=== PATIENT | male | born 1995 | race Caucasian/White ===

== ENCOUNTER 2017-03-03 01:15 | Emergency (ER) | payer OTHER ==
[~2017-03-03] VITALS: Ht 185.4 cm; Wt 89.0 kg
[2017-03-03 01:23] VITALS: TEMP 36.4; O2SAT 95; Ht 185.4 cm; Wt 89.0 kg
[2017-03-03 02:11] LABS: BUN/CREATININE RATIO 16.2 (10-20); CALCIUM 8.9 mg/dl (8.5-10.1); CREATININE 0.81 mg/dl (0.60-1.40); POTASSIUM 3.8 mmol/L (3.5-5.1)
[2017-03-03 07:47] VITALS: BP 107/88; PULSE 76; O2SAT 98
--- NOTE | 2017-03-03 07:57 | EMERGENCY ROOM VISIT NOTE ---
History Report prepared by Fina: Louisa Boss Under the Supervision of: Dr. Dai Pathak D.O. First contact with patient: 01:18 Stated Complaint: ALCOHOL History of Present Illness The patient is a 21 year old male who presents to the Emergency Room with complaints of an episode of an alcohol overdose occurring tonight. Per the police the patient was found trying to help a friend who was drunk. The patient states that he attends [employer] and is visiting a friend who attends [facility] during his fall break. He denies falling and hurting himself. He notes he has a history of asthma. HPI limited secondary to alcohol intoxication. Source of History: patient, police History Limited By: intoxication Onset: tonight Position: other (global) Quality: other (global) Timing: other (episode) Note: The patient denies hurting himself or falling. Review of Systems See HPI for pertinent positives & negatives. A total of 10 systems reviewed and were otherwise negative. Past Medical & Surgical Medical Problems: (1) Asthma Family History No pertinent family history Social History Alcohol Use: occasionally Marital Status: single Housing Status: lives with roommate Occupation Status: student Current/Historical Medications Unable to Obtain Active Prescriptions or Reported Meds Physical Exam Vital Signs Date Time Temp Pulse Resp B/P (MAP) Pulse Ox O2 Delivery O2 Flow Rate FiO2 03/03/17 06:01 84 17 106/56 94 Room Air 03/03/17 05:52 108 03/03/17 05:06 92 22 112/54 93 Room Air 03/03/17 04:01 85 20 94 Room Air 122/58 03/03/17 03:00 86 19 98/60 94 Room Air 03/03/17 02:03 73 16 120/72 97 Room Air 03/03/17 01:26 101 03/03/17 01:23 36.4 82 18 146/84 95 Room Air 03/03/17 01:23 95 Room Air Physical Exam General: Smells of alcohol, but very cooperative on exam. HEENT: Head - normocephalic and atraumatic Pupils are equal, round, and reactive to light. Extraocular eye muscles are intact, and sclera are anicteric. Nose - moist nasal mucosa without discharge. Mouth - moist buccal mucosa. Oropharynx is nonerythematous and there is no tonsillar exudate or edema noted. Neck: Supple; no JVD, nuchal rigidity, cervical lymphadenopathy. Heart: Tachycardic rate and regular rhythm. There is a normal S1 and S2 with no murmurs, clicks, or gallops appreciated. Lungs: Clear to auscultation bilaterally with no wheezes, rales, or rhonchi. Abdomen: Soft, completely nontender, nondistended, with good bowel sounds. There are no palpable pulsatile masses or hepatosplenomegaly. There is no guarding, rigidity, or rebound noted. Extremities: No evidence of cyanosis, clubbing, or edema. There are easily palpable peripheral pulses. Skin: warm and dry with good turgor and no rashes. Medical Decision & Procedures Laboratory Results 03/03/17 01:30 Test 03/03/17 01:30 Anion Gap 9.0 mmol/L (3-11) Est Creatinine Clear Calc Drug Dose 165.7 ml/min Estimated GFR () 149.3 Estimated GFR (Non- 128.8 BUN/Creatinine Ratio 16.2 (10-20) Calcium Level 8.9 mg/dl (8.5-10.1) Ethyl Alcohol mg/dL 295.0 mg/dl (0-3) Laboratory results per my review. ED Course 0123: Past medical records reviewed. The patient was evaluated in room A12B. A complete history and physical exam was performed. Labs were drawn as above. The patient was observing the cardiac cath lab technologist and pulse oximeter. He is placed in the prone position to avoid aspiration. 0254: I reevaluated the patient and he is sound asleep. He is hemodynamically stable. 0555: I reevaluated the patient and he asleep. He is hemodynamically stable. 0652: I reevaluated the patient and he is still sleeping. His vitals are stable. 0731: Upon reevaluation, the patient was awake. I discussed the dangers of drinking excessive amounts of alcohol. He is going to call a friend to come get him. I discussed findings and results with him. He verbalized agreement of the treatment plan. The patient was discharged home. Medical Decision The patient is a 21 year old male who presents to the Emergency Room with complaints of an episode of an alcohol overdose occurring tonight. Differential diagnoses include alcohol overdose, drug intoxication, head trauma , hypoglycemia. LABS: Alcohol 295 Normal renal function Normal glucose This is a 21-year-old male patient who presents to the emergency department after drinking too much alcohol. He was observed here in the emergency department overnight until he was more sober. He was encouraged to avoid such excessive alcohol use in the future. Arrangements were made for the patient be picked up by his friend. Impression Primary Impression: Alcohol overdose Scribe Attestation The scribe's documentation has been prepared under my direction and personally reviewed by me in its entirety. I confirm that the note above accurately reflects all work, treatment, procedures, and medical decision making performed by me. Departure Information Dispostion Home / Self-Care Prescriptions Unable to Obtain Active Prescriptions or Reported Meds Referrals No Doctor, Assigned (PCP) Forms HOME CARE DOCUMENTATION FORM, IMPORTANT VISIT INFORMATION Additional Instructions Rest. Take plenty of clear liquids Take tylenol for headache Avoid such excessive alcohol use in the future Problem Qualifiers Primary Impression: Alcohol overdose Encounter type: initial encounter Injury intent: accidental or unintentional Qualified Codes: T51.91XA - Toxic effect of unspecified alcohol , accidental (unintentional), initial encounter
== END 2017-03-03 07:48 | disposition home or self-care (01) ==
LOC: EDBD 01:15 → C.EDA 01:18
DX: T51.91XA Toxic effect of unspecified alcohol, accidental (unintentional), initial encounter (principal); J45.909 Unspecified asthma, uncomplicated